=== PATIENT | male | born 1950 | race Caucasian/White ===

== ENCOUNTER 2018-12-30 10:06 | Inpatient (IN) | payer MEDICARE, OTHER ==
[~2018-12-30] VITALS: Ht 177.8 cm; Wt 79.8 kg
[~2018-12-30 10:06] MED LIST: AMIT50TA3 PO; FLUO10CA26 PO; OMEP40CA13 PO; SIMV20TA2 PO; SUCR1TAB PO
[2018-12-30] MEDS ORDERED: ONDANSETRON HCL/PF 4 MG/2 ML VIAL ONE (10:57)
[2018-12-30] MEDS ORDERED: MORPHINE SULFATE INJ 4 MG/ML DISP.SYRIN ONE (10:57)
[2018-12-30] MEDS ORDERED: IV NS 0.9% 1,000 ML BAG IV ONE (11:00)
[2018-12-30] MEDS ORDERED: MORPHINE SULFATE INJ 2 MG/ML DISP.SYRIN IV ONE (11:00)
[2018-12-30] MEDS ORDERED: ONDANSETRON HCL/PF 4 MG/2 ML VIAL IVP ONE (11:00)
[2018-12-30 11:03] LABS: BASOPHILS % (AUTO) 0.1 % (0.0-2.0); EOSINOPHILS % (AUTO) 0.6 % (0.0-6.0); HEMATOCRIT 40 % (39-51); HEMOGLOBIN 13.3 g/dL (13.5-17.5); LYMPHOCYTES # (AUTO) 0.1 /CMM (0.8-4.8); LYMPHOCYTES % (AUTO) 1.2 % (20.0-44.0); MEAN CORPUSCULAR HGB CONC 34 g/dl (31.0-36.0); MEAN CORPUSCULAR VOLUME 85 fL (80-96); MONOCYTES # (AUTO) 0.1 /CMM (0.1-1.30); MONOCYTES % (AUTO) 1.2 % (2.0-12.0); NEUTROPHILS % (AUTO) 96.9 % (43.0-81.0); PLATELET COUNT (AUTO) 57 /CMM (150-450); RED BLOOD CELL COUNT(AUTO) 4.67 MIL/uL (4.5-6.0); WHITE BLOOD COUNT (AUTO) 5.2 K/uL (4.3-11.0)
--- NOTE | 2018-12-30 11:07 | NUR ---
BIBFRIEND C/O RECTAL PAIN, CONSTIPATED, LAST BM 3 DAYS AGO, Hx IBS. ON ROOM AIR, BREATHING EVENLY AND UNLABORED. CONNECTED TO THE MONITOR AND PULSE OX. KEPT COMFORTABLE, WILL CONTINUE TO MONITOR ACCORDINGLY.
[2018-12-30 11:17] LABS: ALBUMIN 3.2 g/dL (3.4-5.0); CALCIUM, SERUM 8.7 mg/dL (8.5-10.1); CREATININE 5.1 mg/dL (0.6-1.3); POTASSIUM 3.6 mmol/L (3.5-5.1); TOTAL PROTEIN, SERUM 6.4 g/dL (6.4-8.2)
[2018-12-30 11:36] LABS: BAND % (MANUAL) 36 % (0.0-5.0); LYMPHOCYTES % (MANUAL) 1 % (16-48); METAMYELOCYTES % 2 % (0-0); MONOCYTES % (MANUAL) 6 % (0-11.0); NEUTROPHILS % (MANUAL) 55 (42-76)
--- NOTE | 2018-12-30 11:48 | NUR ---
CALLED FOR TELE BED
--- NOTE | 2018-12-30 11:50 | NUR ---
[facility]
[2018-12-30] MEDS ORDERED: IV NS 0.9% 500 ML BAG IV ONE (12:00)
--- NOTE | 2018-12-30 14:28 | NUR ---
TRANSFERED TO FLOOR. STABLE CONDITION. REPORT WAS GIVEN TO LILIA RN FOR DONNA.
[2018-12-30] MEDS ORDERED: MAGNESIUM HYDROXIDE 30 ML UDC PO PRN (14:30)
[2018-12-30] MEDS ORDERED: ONDANSETRON HCL/PF 4 MG/2 ML VIAL IVP PRN (14:30)
[2018-12-30] MEDS ORDERED: ACETAMINOPHEN 325 MG TABLET PO PRN (14:30)
[2018-12-30] MEDS ORDERED: ZOLPIDEM TARTRATE 5 MG TABLET PO PRN (14:30)
[2018-12-30] MEDS ORDERED: Z GUARD REMEDY 2 OZ OINT TP PRN (14:30)
[2018-12-30] MEDS: IV NS 0.9% 1,000 ML IV PRN (14:36)
[2018-12-30 16:00] VITALS: BP 81/55
[2018-12-30] MEDS: SUCRALFATE 1 G TABLET PO SCH (17:00)
--- NOTE | 2018-12-30 18:34 | NUR ---
RN CLOSING NOTES Patient remains on 2L nasal cannula no sob noted, remains a/o x3 and denies pain at this time. Patient has low bp, SOCIAL SERVICE ASSISTANT aware and wants fluids infused at this time. 18 ac with 75 ml per hour NS. all needs attended to, patient comfortable on his bed. Bed at the lowest setting, call light within reach, side rails up x2. Will give report to NOC RN for DONNA bedside.
--- NOTE | 2018-12-30 19:00 | NUR ---
MS RN NOTE RECEIVED PT IN STABLE CONDITION A/O X4, CURRENTLY IN SITTING BED. NO SIGNS OF SOB OR DISTRESS, PAIN TO BE MANAGED AT ORDERED, NO C/O OF N/V. IV IN L AC #[address] WITH IVF INFUSING. ALL CURRENT NEEDS ATTENDED TO. BED LOW, LOCKED, UPPER RAILS UP, AND CALL LIGHT WITHIN REACH. WILL CONT. TO MONITOR.
[2018-12-30] MEDS: HYDROCODONE/APAP 5/325MG 1 EACH TABLET PO PRN (19:32)
--- NOTE | 2018-12-30 19:32 | NUR ---
MS RN NOTE PRN NORCO 5/325 MG GIVEN FOR PAIN 10 LOCATED IN RECTAL AREA. WILL CONT. TO MONITOR.
[2018-12-30 20:00] VITALS: BP 94/46
[2018-12-30] MEDS: SIMVASTATIN 20 MG TABLET PO SCH (21:06)
[2018-12-30] MEDS ORDERED: AMITRIPTYLINE HCL 25 MG TABLET PO SCH (22:00)
[2018-12-31] VITALS (42 sets, daily range): BP systolic 53–145; BP diastolic 11–115
[2018-12-31] MEDS: IV NS 0.9% 1,000 ML IV PRN ×4 (02:31→14:27)
[2018-12-31] MEDS: HYDROCODONE/APAP 5/325MG 1 EACH TABLET PO PRN ×3 (02:37→08:51)
--- NOTE | 2018-12-31 03:35 | NUR ---
MS RN NOTE PT NOTED WITH BP OF 71/42, HR 104, O2 96%. BRINDA NOTIFIED WITH NEW ORDER FOR 500 ML IV BOLUS. WILL CARRY ORDER OUT.
[2018-12-31] MEDS ORDERED: IV NS 0.9% 500 ML IV ONE (04:00)
--- NOTE | 2018-12-31 04:20 | NUR ---
MS RN NOTE POST BOLUS VS: 90/51, HR 114, 97.7, 93%, 19. PT REMAINS ALERT ORIENTED. NO SIGNS OF SOB OR DISTRESS. STILL C/O RECTAL PAIN. NO OTHER SITES OF PAIN NOTED. PREVIOUS IVF RECONNECTED. WILL CONT. TO MONITOR.
--- NOTE | 2018-12-31 06:11 | NUR ---
MS RN NOTE PT REMAINS IN STABLE CONDITION A/O X4, CURRENTLY RESTING IN BED. NO SIGNS OF SOB OR DISTRESS, NO C/O OF N/V. IV IN L AC #[address] WITH IVF INFUSING. ALL CURRENT NEEDS ATTENDED TO. BED LOW, LOCKED, UPPER RAILS UP, AND CALL LIGHT WITHIN REACH. WILL CONT. TO MONITOR AND ENDORSE TO NEXT SHIFT FOR DONNA.
[2018-12-31 06:25] LABS: ALANINE AMINOTRANSFERASE 46 U/L (12-78); ALBUMIN 2.5 g/dL (3.4-5.0); ALKALINE PHOSPHATASE 109 U/L (46-116); ASPARTATE AMINOTRANSFERASE 31 U/L (15-37); BILIRUBIN,TOTAL 4.6 mg/dL (0.2-1.0); CALCIUM, SERUM 7.6 mg/dL (8.5-10.1); CARBON DIOXIDE 17 mmol/L (21-32); CHLORIDE 102 mmol/L (98-107); GLUCOSE 101 mg/dL (74-106); MAGNESIUM 1.7 mg/dL (1.8-2.4); PHOSPHORUS 6.2 mg/dL (2.5-4.9); POTASSIUM 4.3 mmol/L (3.5-5.1); SODIUM SERUM 136 mmol/L (136-145); TOTAL PROTEIN, SERUM 5.6 g/dL (6.4-8.2); UREA NITROGEN, BLOOD 89 mg/dL (7-18)
[2018-12-31 06:27] LABS: CHOLESTEROL 86 mg/dL (<200); CREATINE KINASE, TOTAL 83 U/L (39-308); HDL CHOLESTEROL < 10 mg/dL (40-60); LDL 18 mg/dL (0-99); TRIGLYCERIDES 427 mg/dL (30-150)
[2018-12-31 06:31] LABS: BASOPHILS % (AUTO) 0.1 % (0.0-2.0); EOSINOPHILS % (AUTO) 1.7 % (0.0-6.0); HEMATOCRIT 36 % (39-51); HEMOGLOBIN 12.2 g/dL (13.5-17.5); LYMPHOCYTES # (AUTO) 0.1 /CMM (0.8-4.8); LYMPHOCYTES % (AUTO) 1.5 % (20.0-44.0); MEAN CORPUSCULAR HGB CONC 34 g/dl (31.0-36.0); MEAN CORPUSCULAR VOLUME 84 fL (80-96); MONOCYTES # (AUTO) 0.1 /CMM (0.1-1.30); MONOCYTES % (AUTO) 1.5 % (2.0-12.0); NEUTROPHILS # (AUTO) 3.6 /CMM (1.8-8.9); NEUTROPHILS % (AUTO) 95.2 % (43.0-81.0); RED BLOOD CELL COUNT(AUTO) 4.28 MIL/uL (4.5-6.0); WHITE BLOOD COUNT (AUTO) 3.8 K/uL (4.3-11.0)
[2018-12-31 06:40] LABS: PLATELET COUNT (AUTO) 43 /CMM (150-450)
--- NOTE | 2018-12-31 06:40 | NUR ---
MS RN NOTE RECEIVED CALL FROM LAB FOR PLATELET 43, MESSAGED BRINDA CARUSO. AWAITING RESPONSE
--- NOTE | 2018-12-31 06:43 | NUR ---
MS RN NOTE BRINDA CARUSO, NO NEW ORDERS IN REGARDS TO PLATELET. WILL ENDORSE TO NEXT SHIFT FOR DONNA.
[2018-12-31 07:29] LABS: BAND % (MANUAL) 23 % (0.0-5.0); LYMPHOCYTES % (MANUAL) 2 % (16-48); MONOCYTES % (MANUAL) 6 % (0-11.0); NEUTROPHILS % (MANUAL) 69 (42-76)
--- NOTE | 2018-12-31 07:31 | NUR ---
M/S RN NOTES PATIENT RECEIVED RESTING IN BED A/O x4. NO SIGNS OF DISTRESS AND NO CURRENT COMPLAINS OF PLAIN. IV LOCATED ON LAC #18. SAFETY PRECAUTIONS INITIATED WITH BED IN LOWEST POSITION, LOCKED, BED RAILS UP x2, AND CALL LIGHT WITHIN REACH. WILL CONTINUE TO MONITOR.
[2018-12-31] MEDS: PANTOPRAZOLE 40 MG TABLET.DR PO SCH (08:23)
[2018-12-31] MEDS: SUCRALFATE 1 G TABLET PO SCH ×3 (08:23→17:00)
--- NOTE | 2018-12-31 08:49 | NUR ---
M/S RN NOTES PATIENT COMPLAINT OF RECTAL PAIN 09/05 WITH MOANING AND FACIAL GRIMACES. NORCO WAS ADMINISTERED AT 0851.
[2018-12-31] MEDS ORDERED: Magnesium 1GM/D5W 100ML PREMIX 100 ML IV SCH (09:30)
--- NOTE | 2018-12-31 10:24 | NUR ---
M/S RN NOTES PATIENT COMPLAINED OF ABDOMINAL DISCOMFORT AND UNABLE TO URINATE. BLADDER SCAN WAS DONE AND SHOWED 390 ML OF URINE RESIDUAL. EMMA TORRES WAS NOTIFIED AND ORDERED TO INSERT LARIOS CATHETER AND URINE SPECIMEN COLLECTION. AFTER INSERTION OF CATHETER 250 OUTPUT OF URINE REMOVED.
--- NOTE | 2018-12-31 10:26 | NUR ---
M/S RN NOTES RECEIVED CALL FROM LAB THAT PATIENTS LACTIC ACID WAS 9.2 .CAREER TECHNICAL EDUCATION TEACHER MELISSA ON UNIT NOTIFIED AND MADE ORDERS. WILL CONTINUE TO MONITOR.
--- NOTE | 2018-12-31 11:18 | NUR ---
M/S RN NOTES INSERTED LARIOS CATHETER ORDERED, FR #[id number] WITH EASE, NO HEMATURIA OR BLEEDING NOTED. 250 ML OF DARK YELLOW COLORED URINE OUTPUT.
[2018-12-31] MEDS ORDERED: SODIUM BICARBONATE SYR 50 MEQ/50 ML DISP.SYRIN ONE (11:57)
[2018-12-31] MEDS ORDERED: SODIUM BICARBONATE SYR 50 MEQ/50 ML DISP.SYRIN IV ONE ×2 (12:00→15:30)
[2018-12-31] MEDS ORDERED: NOREPINEPHRINE 8 MG in IV D5W 500 ML IV PRN (12:00)
[2018-12-31] MEDS ORDERED: NS 0.9% IV PRN (12:00)
[2018-12-31 12:06] LABS: ABG OXYGEN SATURATION 93.1 % (92.0-98.5); ABG PCO2 20.9 mmHg (35.0-45.0); ABG PH 7.172 (7.350-7.450); ABG PO2 83.7 mmHg (75.0-100.0); AaDO2 91.3 mmHg; COHb 0.9 % (0.5-1.5); MetHb 0.6 % (0.0-1.5); O2Hb 91.7 % (94.0-97.0); SITE, ABG Right Radial; VENT MODE, BG NASAL CANNULA
[2018-12-31] MEDS ORDERED: FEE PK DOSING 1 MIN EA MC ONE (12:15)
--- NOTE | 2018-12-31 12:15 | NUR ---
ICU/MEDICAL DEVICE ASSEMBLER TO ICU - ROOM 256 PT ARRIVED VIA BED, ACCOMPANIED BY MEDSUR NURSE SUSHILA. PT A/O X 3, COMPLAINT OF ABDOMINAL PAIN (SEVERE), DIAPHORETIC AND ANXIOUS. PLACED ON NON-REBREATHER MASK, LABORED BREATHING. UNCONTROLLED A-FIB, HR 180. WITH ON GOING BOLUS IV INFUSION 1 OF 2.1L OF NS. LARIOS CATHETER INTACT WITH MINIMUM CLOUDY YELLOW URINE OUTPUT. EMMA TORRES AND DR. HUMPHREYS ATTENDING PT. REPORT GIVEN AT BEDSIDE. ON GOING MONITORING.
[2018-12-31 12:17] LABS: CREATININE, URINE 339.6 MG/DL (30.0-125.0)
[2018-12-31] MEDS ORDERED: Sodium Bicarbonate 150 MEQ in IV NS 0.9% 1,000 ML IV PRN ×2 (12:30→20:30)
[2018-12-31] MEDS ORDERED: VANCOMYCIN 0.75 GM in IV D5W 250 ML IV SCH ×2 (12:30→13:00)
[2018-12-31] MEDS ORDERED: FENTANYL PF 100MCG/2ML AMPUL IV ONE (12:30)
--- NOTE | 2018-12-31 12:31 | NUR ---
RN NOTES PATIENT NOTED DIAPHORETIC AND VERBALIZED THAT HE DOESN'T FEEL OK. PT REMAINS ALERT AND ORIENTED X3. PROCALCITONIN 54.18. JAVA SCALA DEVELOPER MELISSA ON UNIT AND MADE AWARE. JAVA SCALA DEVELOPER MELISSA WITH ORDER TO PLACED PT ON NON-REBREATHER MASK, DO STAT EKG, ABG, CT OF ABD/CHEST/PELVIS W/O CONTRAST THEN TRANSFER PT TO ICU. V/S CHECK: BP UN-ABLE TO OBTAINED, HR 160-200, R 21, T 97.9F, SP02 79% BS 98. PT BROUGHT TO CT ROOM VIA ACLS PROTOCOL THEN TRANSFERRED TO ICU RM 256 AFTER. NA BICARB ADMINISTERED IN ICU. LATEST BP WAS 94/71MMHG, HR 180-200BPM, R 20 AND SP02 98%. BEDSIDE REPORT GIVEN TO ABIMAEL MEDINA.
[2018-12-31] MEDS ORDERED: FENTANYL PF 100MCG/2ML AMPUL ONE (12:37)
[2018-12-31 12:49] LABS: APPEARANCE,URINE CLOUDY (CLEAR); BILIRUBIN,URINE MODERATE (NEGATIVE); BLOOD, URINE NEGATIVE Ery/uL (NEGATIVE); COLOR,URINE AMBER (YELLOW); KETONES,URINE TRACE (NEGATIVE); LEUKOCYTE ESTERASE ,URINE TRACE (NEGATIVE); NITRITE, URINE POSITIVE (NEGATIVE); PROTEIN,URINE 30 mg/dl (NEGATIVE); UGLUCOSE NEGATIVE (NEGATIVE); UROBILINOGEN,URINE 0.2 EU/dL (0.2)
[2018-12-31 12:57] LABS: BACTERIA,URINE Moderate /HPF (None Seen); RBC,URINE 0-2 /HPF (0-2); SQUAMOUS EPITHELIAL CELL,UR Few /HPF (None Seen); WBC,URINE 21-50 /HPF (0-3)
[2018-12-31 12:58] LABS: CALCIUM OXALATE CRYSTALS,UR Rare /HPF (None Seen); MUCUS,URINE Few /LPF (None Seen)
[2018-12-31 12:59] LABS: URINE AMORPHOUS URATE Few /HPF (None Seen)
[2018-12-31] MEDS ORDERED: PIPERACILLIN /TAZOBACTAM 2.25 G in IV D5W 50 ML IV SCH (13:00)
[2018-12-31 13:08] LABS: EOSINOPHIL,URINE Rare
[2018-12-31] MEDS ORDERED: Sodium Bicarbonate 150 MEQ in IV NS 0.9% 1,000 ML IV ONE (13:37)
[2018-12-31] MEDS: NOREPINEPHRINE 8 MG in IV D5W 500 ML IV PRN ×3 (14:00→23:19)
[2018-12-31] MEDS ORDERED: HYDROMORPHONE 1 MG/1 ML DISP.SYRIN IV PRN (14:00)
[2018-12-31 14:22] LABS: ABG BASE EXCESS -19.8 mmol/L; ABG OXYGEN SATURATION 96.2 % (92.0-98.5); ABG PH 7.143 (7.350-7.450); ABG PO2 113.4 mmHg (75.0-100.0); AaDO2 433.9 mmHg; COHb 0.1 % (0.5-1.5); MetHb 0.7 % (0.0-1.5); O2Hb 95.4 % (94.0-97.0); SITE, ABG Left Brachial; VENT MODE, BG Non Rebreather 80%
--- NOTE | 2018-12-31 15:44 | NUR ---
ICU/RN INTUBATION PT WITH DR. HUMPHREYS AT BEDSIDE INTUBATING PT WITH (3) RESPIRATORY THERAPIST AND CHARGE NURSE. MONITORING.
--- NOTE | 2018-12-31 15:45 | NUR ---
RT NOTE Pt intubated by VIRA Rosas w 7.5 ETT placed @ 24 cm @ lip line. Equal and bilateral breath sounds noted. Positive color change observed. Pt placed on [facility] vent on noted settings. Vent is plugged into red outlet w ambubag @ hob. Alarms are set and audible. Will continue to monitor. Addendum: 12/31/18 at 1636 by SALMA ROQUE RT Amended: Links added.
[2018-12-31 15:59] LABS: ABG BASE EXCESS -16.6 mmol/L; ABG OXYGEN SATURATION 97.4 % (92.0-98.5); ABG PCO2 27.4 mmHg (35.0-45.0); ABG PH 7.186 (7.350-7.450); ABG PO2 135.4 mmHg (75.0-100.0); AaDO2 406.2 mmHg; COHb 0.3 % (0.5-1.5); MetHb 0.7 % (0.0-1.5); O2Hb 96.4 % (94.0-97.0); SITE, ABG A-Line; VENT MODE, BG 100%
--- NOTE | 2018-12-31 16:11 | NUR ---
ICU/RN CARDIOVERSION DR. HUMPHREYS AT BEDSIDE PERFORMING CARDIOVERSION (TWICE) WITH CHARGE NURSE ASSISTING, HR DECREASED TO 150, CONVERTED TO SINUS TACHY. MONITORING.
[2018-12-31] MEDS: IV NS 0.9% 2,000 ML IV PRN ×2 (16:30→17:12)
[2018-12-31] MEDS ORDERED: PROPOFOL 100 ML IV PRN (16:30)
--- NOTE | 2018-12-31 17:40 | NUR ---
RT Pt intubated by VIRA Rosas w 7.5 Ett @ 23cm and on [facility] vent w charted settings. Vent is plugged into red outlet w bmv @ hob. Alarms are set and audible. Pt is tachycardic. Will pass on report to night clerk RT.
[2018-12-31] MEDS ORDERED: KEY,NONCONTROL,TO KEEP IN PYXI 1 EA MC ONE (17:41)
[2018-12-31 18:15] LABS: ABG BASE EXCESS -17.4 mmol/L; ABG OXYGEN SATURATION 98.8 % (92.0-98.5); ABG PCO2 31.9 mmHg (35.0-45.0); ABG PH 7.134 (7.350-7.450); ABG PO2 281.8 mmHg (75.0-100.0); AaDO2 399.3 mmHg; MetHb 0.9 % (0.0-1.5); O2Hb 97.9 % (94.0-97.0); PEEP,BG 5 cm H2O; SITE, ABG A-Line; VT, ABG 500 mL
--- NOTE | 2018-12-31 18:30 | NUR ---
ICU/GIVING OFFICER DR. GABRIELLA QUIROZ PERFORMED PERIANAL INCISIONAL DECOMPRESSION. CULTURE OBTAINED AND SENT TO LAB.
[2018-12-31] MEDS: MEROPENEM 500 MG in IV NS 0.9% 50 ML IV SCH (18:57)
[2018-12-31] MEDS ORDERED: IV NS 0.9% 2,000 ML IV ONE (19:00)
[2018-12-31] MEDS ORDERED: FENTANYL CITRATE IV 1,250 MCG in IV NS 0.9% 225 ML IV PRN (19:00)
[2018-12-31] MEDS ORDERED: IV NS 0.9% 1,000 ML BAG IV ONE (19:00)
[2018-12-31] MEDS ORDERED: PHENYLEPHRINE 20 MG in IV D5W 250 ML IV PRN (19:00)
--- NOTE | 2018-12-31 20:00 | NUR ---
ICU/RN AM SHIFT END NOTES ALL NEEDS MET, BP NOT SUSTAINING BUT HAD INCREASED DOSE OF LEVO, WILL CHANGE MEDICATION TO ZORAIDA, HR IN THE 140s. WITH ON GOING IV INFUSION NS, SODIUM BICARB, PROPOFOL. PT RECEIVED ABOUT 6L NS WITH SCANT URINE OUTPUT. REPORT GIVEN TO PM NURSE, ENDORSED TO CONTINUE CARE. CL WITHIN REACHED AND SAFETY MAINTAINED.
--- NOTE | 2018-12-31 20:10 | NUR ---
RN NOTES RECEIVED PATIENT ORALLY INTUBATED WITH ETT 7.5 AND 24 CM @ LIP CONNECTED TO VENT SETTING AC 28 TV 550 FIO2 100% PEEP 5. SEDATED. ABLE TO FOLLOW SIMPLE COMMAND, NON VERBAL. SATURATION 92% SINUS TACH ON TELE MONITOR HR 138 S/P CARDIOVERT BY DR. HUMPHREYS DUE TO A-FIB HR 200'S AND CONVERTED TO ST AFTER 2X CONVERSION. WITH A-LINE READS SBP 60'S/35 BUT NIBP IS 102/58. WAITING FOR NEOSYNEPHRINE TO COME, PHARMACY ALREADY FOLLOWED UP. WAITING WITH NGT ON RIGHT NARES ON LIS. IV SITE ON RAC G 18 WITH LEVOPHED @ 35 MCG/MIN. AND ROGELIO PICC LINE WITH PROPOFOL @ 10 MCG/KG/MIN,, NA BICARB @ 150 ML/HR AND NS @ 125 ML/HR . KEPT PT FLAT ON BED. WILL CLOSELY MONITOR.
[2018-12-31 20:18] LABS: D-DIMER 26.14 mg/L(FEU (0.17-0.50)
[2018-12-31] MEDS ORDERED: DEXTROSE 50%-WATER 50 ML DISP.SYRIN ONE (20:25)
[2018-12-31] MEDS ORDERED: DEXTROSE 50%-WATER 50 ML DISP.SYRIN IVP ONE (20:30)
[2018-12-31] MEDS ORDERED: INSULIN REGULAR, HUMAN 100 UNIT/ML 3 ML VIAL SQ PRN (20:30)
--- NOTE | 2018-12-31 20:30 | NUR ---
RN NOTES SEEN AND EXAMINED BY MELISSA PATHOLOGIST ASSISTANT ON THE FLOOR WITH NEW ORDER TO CHECKED BS STAT , BS=37 MG/DL, D50 GIVEN VERBALIZED BY MELISSA PATHOLOGIST ASSISTANT. WILL RECHECKED AFTER 15 MINUTES. A- LINES READING SBP ON 40-50S BUT NIBP WAS ON 90'S -110'S, CHARGE NURSE CHECKED PATIENT SBP VIA DOPPLER SYSTOLIC BP=85 MMHG BUT PER MELISSA PATHOLOGIST ASSISTANT TO FOLLOW A- LINE READING NOTED.
--- NOTE | 2018-12-31 20:41 | NUR ---
RECEIVED PT INTUBATED 7.5 ETT SECURED AT 24CM AT THE LIP. TOLERATING VENT SETTINGS. SX'D FOR SML AMT OF THIN WHITE SECRETIONS. VENT ALARMS SET AND AUDIBLE. AMBU BAG AT BEDSIDE. CONTINUE [facility] VENT SUPPORT. Addendum: 12/31/18 at 204 by YUE SANTOS RT Amended: Links added.
[2018-12-31 20:51] LABS: EOSINOPHILS % (AUTO) 3.1 % (0.0-6.0); HEMATOCRIT 33 % (39-51); LYMPHOCYTES # (AUTO) 0.1 /CMM (0.8-4.8); LYMPHOCYTES % (AUTO) 1.7 % (20.0-44.0); MEAN CORPUSCULAR HGB CONC 33 g/dl (31.0-36.0); MEAN CORPUSCULAR VOLUME 85 fL (80-96); MONOCYTES % (AUTO) 1.4 % (2.0-12.0); NEUTROPHILS # (AUTO) 2.8 /CMM (1.8-8.9); NEUTROPHILS % (AUTO) 93.8 % (43.0-81.0); RED BLOOD CELL COUNT(AUTO) 3.87 MIL/uL (4.5-6.0)
[2018-12-31 21:02] LABS: PLATELET COUNT (AUTO) 33 /CMM (150-450)
[2018-12-31 21:13] LABS: CREATININE 6.4 mg/dL (0.6-1.3); POTASSIUM 3.8 mmol/L (3.5-5.1)
--- NOTE | 2018-12-31 21:13 | NUR ---
ABG DONE. NOTIFIED GRAPHIC ILLUSTRATOR RENEE AND PIA VARGHESE WITH THE RESULT.
[2018-12-31 21:14] LABS: ABG BASE EXCESS -18.2 mmol/L; ABG OXYGEN SATURATION 98.3 % (92.0-98.5); ABG PCO2 28.8 mmHg (35.0-45.0); ABG PH 7.135 (7.350-7.450); ABG PO2 183.4 mmHg (75.0-100.0); AaDO2 500.8 mmHg; COHb 0.2 % (0.5-1.5); MetHb 0.9 % (0.0-1.5); O2Hb 97.2 % (94.0-97.0); SITE, ABG A-Line; VENT MODE, BG AC 28 550 100% +5
[2018-12-31 21:16] LABS: CALCIUM, SERUM 5.7 mg/dL (8.5-10.1)
[2018-12-31 21:19] LABS: BILIRUBIN,TOTAL 2.9 mg/dL (0.2-1.0); TOTAL PROTEIN, SERUM 3.7 g/dL (6.4-8.2)
[2018-12-31 21:22] LABS: ALBUMIN 1.4 g/dL (3.4-5.0)
[2018-12-31] MEDS: DEXTROSE 50%-WATER 50 ML DISP.SYRIN IV PRN (21:42)
[2018-12-31] MEDS: Sodium Bicarbonate 150 MEQ in IV D5/ 0.9% NACL 1,000 ML IV PRN (21:42)
[2018-12-31] MEDS: PHENYLEPHRINE 80 MG in IV D5W 250 ML IV PRN (21:50)
[2018-12-31 22:08] LABS: BAND % (MANUAL) 40 % (0.0-5.0); EOSINOPHILS % (MANUAL) 2 % (0-4); LYMPHOCYTES % (MANUAL) 3 % (16-48); METAMYELOCYTES % 5 % (0-0); MONOCYTES % (MANUAL) 2 % (0-11.0)
[2018-12-31 22:10] LABS: NEUTROPHILS % (MANUAL) 48 (42-76)
[2018-12-31] MEDS ORDERED: Calcium Gluconate 1GM/10ML 4.65 MEQ in IV NS 0.9% 50 ML IV ONE (22:30)
[2018-12-31] MEDS ORDERED: NOREPINEPHRINE 4 MG/4 ML AMPUL IV ONE (22:38)
[2018-12-31] MEDS: SIMVASTATIN 20 MG TABLET PO SCH (22:49)
[2018-12-31] MEDS ORDERED: ALBUMIN 25% 100 ML IV ONE (22:59)
[2018-12-31] MEDS ORDERED: ACETAMINOPHEN 650 MG/20.3 ML UDC NG PRN (23:00)
--- NOTE | 2018-12-31 23:00 | NUR ---
RN NOTES FENTANYL DRIP AND NEOSYNEPHRINE DRIP STARTED AND WILL TITRATED ORDERED. COOLING MEASURES PROVIDED, COOLING BLANKET PLACED FOR TEMPERATURE OF 102.5,
[2018-12-31] MEDS ORDERED: Calcium Gluconate 0.465 MEQ/ML VIAL IV ONE (23:01)
[2018-12-31] MEDS: ALBUMIN 25% 25 GM in PREMIX 1 EA IV SCH (23:04)
--- NOTE | 2018-12-31 23:20 | NUR ---
RN NOTES PATIENT IS TACHYPNEIC AND DIAPHORETIC, INITIATED FENTANYL DRIP @ 1 MCG/KG/HR , BP STILL IN A LOW SIDE FROM A- LINE 61/28 MMHG NIBP 88/50 MMHG. ALL PRESSORS ONGOING AND TITRATED PROTOCOL ORDER
[2018-12-31] MEDS ORDERED: IV NS 0.9% 250 ML IV PRN (23:30)
[2018-12-31] MEDS: BLOOD SUGAR DIAGNOSTIC 1 EACH STRIP IN SCH (23:51)
[2019-01-01] VITALS (52 sets, daily range): BP systolic 49–129; BP diastolic 28–102
[2019-01-01] MEDS ORDERED: BLOOD SUGAR DIAGNOSTIC 1 EACH STRIP IN SCH
--- NOTE | 2019-01-01 00:30 | NUR ---
RN NOTES INFORMED BRINDA DNP TOLL TRANSMISSION WORKER THAT PATIENT IS ON AGONAL BREATHING AND FOLLOW UP REGARDING ABG RESULT, AND THAT NURSES ARE STILL WAITING FOR DR. POLLACK TO ANSWERED BACK. WAITING FOR THE ORDERS.
[2019-01-01 00:38] LABS: ABG OXYGEN SATURATION 98.4 % (92.0-98.5); ABG PCO2 27.2 mmHg (35.0-45.0); ABG PH 7.042 (7.350-7.450); ABG PO2 189.9 mmHg (75.0-100.0); AaDO2 495.9 mmHg; COHb 0.3 % (0.5-1.5); MetHb 0.6 % (0.0-1.5); O2Hb 97.5 % (94.0-97.0); PEEP,BG 5 cm H2O; SITE, ABG A-Line
--- NOTE | 2019-01-01 00:38 | NUR ---
ABG DONE. NOTIFIED NOHELIA DIRECTOR AMBULATORY WITH THE RESULT.
[2019-01-01] MEDS ORDERED: SODIUM BICARBONATE SYR 50 MEQ/50 ML DISP.SYRIN IV STA (00:42)
[2019-01-01 00:44] LABS: BASOPHILS % (AUTO) 0.1 % (0.0-2.0); EOSINOPHILS % (AUTO) 3.7 % (0.0-6.0); HEMATOCRIT 36 % (39-51); HEMOGLOBIN 11.8 g/dL (13.5-17.5); LYMPHOCYTES # (AUTO) 0.2 /CMM (0.8-4.8); LYMPHOCYTES % (AUTO) 3.2 % (20.0-44.0); MEAN CORPUSCULAR HGB CONC 33 g/dl (31.0-36.0); MEAN CORPUSCULAR VOLUME 87 fL (80-96); MONOCYTES # (AUTO) 6.1 /CMM (0.1-1.30); MONOCYTES % (AUTO) 91.9 % (2.0-12.0); NEUTROPHILS # (AUTO) 0.1 /CMM (1.8-8.9); NEUTROPHILS % (AUTO) 1.1 % (43.0-81.0); RED BLOOD CELL COUNT(AUTO) 4.17 MIL/uL (4.5-6.0); WHITE BLOOD COUNT (AUTO) 6.6 K/uL (4.3-11.0)
--- NOTE | 2019-01-01 00:45 | NUR ---
RN NOTES INFORMED [employer] REGARDING ABG RESULT PH 7.042, PCO2 27.2, [id number], HCO33 7.2. WITH NEW ORDER TO GIVE 1 AMP OF BICARB NOTED AND ADMINISTERED
[2019-01-01] MEDS ORDERED: ALBUMIN 25% 100 ML IV ONE (00:49)
[2019-01-01] MEDS: ALBUMIN 25% 25 GM in PREMIX 1 EA IV SCH ×3 (00:52→04:35)
[2019-01-01 00:53] LABS: BILIRUBIN,TOTAL 3.3 mg/dL (0.2-1.0); CALCIUM, SERUM 6.2 mg/dL (8.5-10.1); CREATININE 6.7 mg/dL (0.6-1.3); POTASSIUM 4.6 mmol/L (3.5-5.1); TOTAL PROTEIN, SERUM 4.3 g/dL (6.4-8.2)
[2019-01-01 00:59] LABS: PLATELET COUNT (AUTO) 34 /CMM (150-450)
[2019-01-01] MEDS: BLOOD SUGAR DIAGNOSTIC 1 EACH STRIP IN SCH ×6 (01:04→11:56)
[2019-01-01] MEDS ORDERED: VASOPRESSIN INJ 20 UNIT/ML VIAL ONE (01:30)
[2019-01-01] MEDS ORDERED: VASOPRESSIN INJ 50 UNIT in IV D5W 497.5 ML IV PRN (01:30)
[2019-01-01] MEDS ORDERED: PHENYLEPHRINE 10 MG/ML VIAL ONE ×2 (01:56→06:34)
[2019-01-01] MEDS ORDERED: NOREPINEPHRINE 4 MG/4 ML AMPUL IV ONE ×2 (01:56→04:32)
[2019-01-01] MEDS: NOREPINEPHRINE 8 MG in IV D5W 500 ML IV PRN ×4 (02:06→12:28)
[2019-01-01] MEDS: MEROPENEM 500 MG in IV NS 0.9% 50 ML IV SCH (02:09)
--- NOTE | 2019-01-01 02:30 | NUR ---
RN NOTES CALLED KATIE GUERRERO RESPONSIBLE DEMOCRAT FROM THE CHART TO UPDATE REGARDING THE PATIENT BEING UNSTABLE AND TO VERIFY WHAT'S HIS RELATIONSHIP TO THE PATIENT. LEAVE A SHORT MESSAGE TO VOICEMAIL TO CALL BACK IN THE HOSPITAL FOR MORE INFORMATION.
[2019-01-01] MEDS ORDERED: ALBUMIN 25% 200 ML IV ONE (02:37)
[2019-01-01] MEDS: DEXTROSE 50%-WATER 50 ML DISP.SYRIN IV PRN ×5 (02:48→12:25)
--- NOTE | 2019-01-01 03:20 | NUR ---
RN NOTES BRINDA CONSTANTINO ON THE FLOOR,EXAMINED THE PATIENT UPDATED REGARDING PATIENT STATUS, MADE AWARE THAT THERE'S A [employer] IN THE CHART NAME KATIE GUERRERO HAVEN'T BEEN CALLED BACK SINCE WE LEFT A MESSAGE.
--- NOTE | 2019-01-01 03:28 | NUR ---
RN NOTES INFORMED BRINDA , DNP THAT THE A-LINE IS VERY OFF/ RE-POSITIONAL, CHECKED ON DOPPLER AND PATIENT NIBP IS MORE CLOSER THAN A-LINE. PER BRINDA TO FOLLOW NIBP.
[2019-01-01] MEDS: IV NS 0.9% 1,000 ML IV PRN (03:46)
--- NOTE | 2019-01-01 04:00 | NUR ---
RN NOTES PATIENT REMAINED HEMODYNAMICALLY UNSTABLE, TEMPERATURE AT THIS TIME IS 99.7 DEGREE FHARENHEIGHT. CONTINUE ON PRESSORS LEVOPHED, NEOSYNEPHRINE AND VASOPRESSIN TITRATED PROTOCOL ORDER. IVF NS , [id number] D5NS AND ALBUMIN IV ADMINISTERED ORDERED. CONTINUE TO CLOSELY MONITOR, PATIENT IS MORE LETHARGIC.
[2019-01-01 04:47] LABS: BASOPHILS % (AUTO) 0.2 % (0.0-2.0); EOSINOPHILS % (AUTO) 3.4 % (0.0-6.0); HEMATOCRIT 32 % (39-51); HEMOGLOBIN 10.6 g/dL (13.5-17.5); LYMPHOCYTES # (AUTO) 0.3 /CMM (0.8-4.8); LYMPHOCYTES % (AUTO) 2.5 % (20.0-44.0); MEAN CORPUSCULAR HGB CONC 33 g/dl (31.0-36.0); MEAN CORPUSCULAR VOLUME 89 fL (80-96); MONOCYTES # (AUTO) 0.1 /CMM (0.1-1.30); MONOCYTES % (AUTO) 0.6 % (2.0-12.0); NEUTROPHILS # (AUTO) 9.7 /CMM (1.8-8.9); NEUTROPHILS % (AUTO) 93.3 % (43.0-81.0); RED BLOOD CELL COUNT(AUTO) 3.65 MIL/uL (4.5-6.0); WHITE BLOOD COUNT (AUTO) 10.3 K/uL (4.3-11.0)
[2019-01-01 05:02] LABS: CALCIUM, SERUM 6.4 mg/dL (8.5-10.1); CREATININE 6.9 mg/dL (0.6-1.3); MAGNESIUM 2.6 mg/dL (1.8-2.4); POTASSIUM 4.9 mmol/L (3.5-5.1)
[2019-01-01] MEDS: Sodium Bicarbonate 150 MEQ in IV D5/ 0.9% NACL 1,000 ML IV PRN (05:10)
[2019-01-01 05:18] LABS: PHOSPHORUS 10.1 mg/dL (2.5-4.9)
[2019-01-01 05:37] LABS: PLATELET COUNT (AUTO) 31 /CMM (150-450)
[2019-01-01 05:45] LABS: BAND % (MANUAL) 45 % (0.0-5.0); BASOPHILS % (MANUAL) 0 % (0.0-2.0); EOSINOPHILS % (MANUAL) 9 % (0-4); LYMPHOCYTES % (MANUAL) 8 % (16-48); METAMYELOCYTES % 2 % (0-0); MONOCYTES % (MANUAL) 3 % (0-11.0); NEUTROPHILS % (MANUAL) 33 (42-76)
[2019-01-01 05:52] LABS: FERRITIN 4970 ng/mL (8-388); THYROID STIMULATING HORMONE 0.674 uIU/mL (0.358-3.74)
[2019-01-01 06:02] LABS: IRON, SERUM 69 ug/dl (50-175); TOTAL IRON BINDING CAPACITY 65 ug/dl (250-450)
[2019-01-01] MEDS: PHENYLEPHRINE 80 MG in IV D5W 250 ML IV PRN ×2 (07:00→10:53)
[2019-01-01] MEDS: PANTOPRAZOLE 40 MG TABLET.DR PO SCH (07:30)
--- NOTE | 2019-01-01 07:30 | NUR ---
RN NOTES RECEIVED PATIENT ORALLY INTUBATED WITH ETT 7.5 AND 24 CM @ LIP CONNECTED TO VENT SETTING AC 28 TV 550 FIO2 100% PEEP 5. SEDATED. OBTUNDED. POORLY SATURATION ON THE MONITOR. SINUS TACH ON TELE MONITOR HR 136. BLOOD PRESSURE ON THE LOW SIDE AND A-LINE NOT ACCURATELY READING ATTENDING IS INFORMED. PATIENT NOTED WITH GENERALIZED EDEMA. NGT ON RIGHT NARES ATTACHED TO INTERMITTENT LOW SUCTIONING WITH COFFEE GROUND DRAINAGE. IV SITE ON RAC G 18 WITH A. LEVOPHED @ 34 MCG/MIN AND ROGELIO PICC LINE WITH NA BICARB @ 150 ML/HR, NS @ 125 ML/HR, PRESSIN AT 0.04 UNIT/MIN, ZORAIDA AT 34MCG/MIN AND FENTANYL AT 70 MCG/MIN. WILL TITRATE DRIPS ACCORDIGNLYWILL KEPT PT FLAT ON BED. WILL CLOSELY MONITOR.
--- NOTE | 2019-01-01 07:35 | NUR ---
RT PATIENT REC'D ORALLY INTUBATED ON VENT IN ICU. PATIENT NON VERBAL, NON RESPONSIVE TO COMMANDS, IN CRITICAL CONDITION. VENT SETTINGS AND ALARMS CHECKED + AUDIBLE. CUFF PRESSURE CHECKED LOGGING SPECIALIST. PATIENT SUCTIONED WITH SMALL AMT OF PALE SEMITHICK SECRETIONS. AMBU BAG AT HOB. CONT CURRENT PLAN OF CARE. Addendum: 01/01/19 at 1638 by MARY CARMEN MCFARLANE RT Amended: Links added.
--- NOTE | 2019-01-01 07:47 | NUR ---
RN NOTES PATIENT REMAINED HEMODYNAMICALLY UNSTABLE AT THIS TIME. CONTINUE WITH ETT AND VENT INTHE SAME SETTING. NON VERBAL CONTINUE WITH PRESSORS LEVOPHED @ 34 MCG/MIN, NEOSYNEPHRINE @ 300, VASOPRESSIN @ 0.04, SODIUM BICARB @ 150 ML.HR , NS @ 125 ML/HR FENTANYL ! 1 MCG/KG/HR AND ATB. NIBP FOLLOWS. WITH POOR PERFUSION , UNABLE TO READ SATURATION REMAINED SINUS TACH BETWEEN 130'S -140'S . AFEBRILE AT THIS TIME. LATEST TEMP 99.2 KATIE GUERRERO BROTHER CALLED BACK AND UPDATED REGARDING THE PATIENT STATUS BROTHER WANTED TO BE CALLED BY MD AND UPDATE REGARDING THE PROGNOSIS OF THE PATIENT AND THE PLAN OF CARE WILL ENDORSED TO AM SHIFT TO RELAY TO MD. KEPT PT CLEAN AND DRY. AND CLOSELY MONITOR.
[2019-01-01] MEDS ORDERED: Sodium Chloride 154 MEQ in IV 10% DEXTROSE 1,000 ML IV PRN ×2 (08:00→09:00)
[2019-01-01 08:06] LABS: COMPLEMENT C3, SERUM 99 mg/dL (82-167); COMPLEMENT C4, SERUM 45 mg/dL (14-44)
[2019-01-01] MEDS ORDERED: ROCURONIUM BROMIDE 50 MG/5 ML IV ONE (08:18)
[2019-01-01] MEDS ORDERED: FEE EMEERGENCY 1 MIN EA MC ONE (08:18)
[2019-01-01] MEDS ORDERED: ETOMIDATE 2 MG/ML VIAL IV ONE (08:18)
[2019-01-01 08:26] LABS: ABG BASE EXCESS -28.5 mmol/L; ABG OXYGEN SATURATION 81.2 % (92.0-98.5); ABG PCO2 29.3 mmHg (35.0-45.0); ABG PH 6.807 (7.350-7.450); ABG PO2 65.3 mmHg (75.0-100.0); COHb 0.5 % (0.5-1.5); SITE, ABG Other
--- NOTE | 2019-01-01 08:30 | NUR ---
RN NOTES CHECK BLOOD SUGAR ODERED, BLOOD SUGAR READS LOW ON THE MONITOR. D50 ADMINISTER. WILL RECHECK BLOOD SUGAR IN A WHILE
[2019-01-01] MEDS: SUCRALFATE 1 G TABLET PO SCH (08:59)
[2019-01-01] MEDS ORDERED: PIPERACILLIN /TAZOBACTAM 2.25 G in IV D5W 50 ML IV SCH (09:00)
[2019-01-01] MEDS ORDERED: SODIUM BICARBONATE SYR 50 MEQ/50 ML DISP.SYRIN IV ONE ×2 (09:00→14:33)
[2019-01-01 09:07] LABS: HIV SCRN 4G wRFX Non Reactive (Non Reactive)
--- NOTE | 2019-01-01 09:10 | NUR ---
RN NOTES BLOOD SUGAR RECHECK READS STILL LOW, CANT ADMINISTER D50 YET SINCE IT WAS JUST ADMINISTERED. DR LYNN, WHO IS TA THE UNIT MADE AWARE. PER THE LATER HE WILL CHECK ON IT. INFORMED HIM THAT I HAVE OBTAINED AN ORDER FROM EMILY TORRES NP TO RUN D10 AT 125 CC/ HR. PER THE LATER HE WILL CHECKED ON IT. AT THE UNIT TOO, SPOKE TO HIM ABOUT RUNNING FLUID AT THIS TIME. PER THE LATTER, WILL CHECK AND PUT ORDER HIMSELF. DR. OBREGON FINALLY OBTAINED D10 AT 50 CC/HR. BUT PHARMACIST (XOCHILT) HAS TO CONFIRMED WITH THE MD ABOUT SODIUM CAROBONATE 150MEQ ON D5NS AND THE NEWLY ORDERED D10.
--- NOTE | 2019-01-01 10:00 | NUR ---
RN NOTES TREASURE HUMPHREYS DNP AT THE UNIT INSERTING A LINE ON THE LEFT GROIN PART AND DIALYSIS CATH ON THE RIGHT GROIN Addendum: 01/01/19 at 1604 by ANGELICA STONE RN 1140 MELLO HUMPHREYS WAS JUST DONE INSERTION THE HD CATH AND A LINE. PATIENT WITH COPIOUS SECRETION FROM THE MOUTH. PATIENT SUCTIONED, CLEANED AND MADE COMFORTABLE. DRE (CHARGE NURSE) AND ABIMAEL TRIPP ALSO AT BEDSIDE, THEY HAVE NOTICE THE COPIOUS DRAINAGE FROM THE INTERMITTENT SUCTION, FROM ETT, MOUTH AND NOSE
[2019-01-01 10:07] LABS: *SPE A/G RATIO 0.9 (0.7-1.7); *SPE ALBUMIN 2.3 g/dL (2.9-4.4); *SPE ALPHA-1-GLOBULIN 0.4 g/dL (0.0-0.4); *SPE ALPHA-2-GLOBULIN 0.8 g/dL (0.4-1.0); *SPE BETA GLOBULIN 0.7 g/dL (0.7-1.3); *SPE GLOBULIN, TOTAL 2.5 g/dL (2.2-3.9); *SPE M-SPIKE Not Observed g/dL (Not Observed); *SPEGAMMA GLOBULIN 0.6 g/dL (0.4-1.8)
--- NOTE | 2019-01-01 11:00 | NUR ---
RN NOTES BLOOD SUGAR CHECK AT THIS TIME READS LOW STILL. INFORMED MD AND OBTAINED ORDER TO GIVE D50 AT THIS TIME. ALSO OBTAINED ORDER TO DO STAT BLOOD GLUCOSE AND TO INCREASE D10 TO 75CC/HR. ORDERS NOTED AND CARRIED OUT
--- NOTE | 2019-01-01 11:30 | NUR ---
RN NOTES PAGED DR. POLLACK ON CHEST XRAY RESULT. NO NEW ORDERS OBTAINED
--- NOTE | 2019-01-01 12:00 | NUR ---
ABIMAEL NOTES BLOOD SUGAR RECHECK THROUGH FINGERSTICK SINCE LAB RESULTS STILL PENDING, BLOOD SUGAR STILL READS LOW. ANOTHER D50 ADMINISTERED. MADE AWARE. Addendum: 01/01/19 at 1310 by [address]GELICA STONE RN DR. HUMPHREYS WHO HAPPEN TO BE AT THE UNIT AT THIS TIME INFORMED. OBTAINED AN ORDER FOR STAT GLUCAGON 1MG IM. ORDER NOTED AND CARRIED OUT. INFORMED DR LYNN REGARDING THE OBTAINED ORDER WELL Addendum: 01/01/19 at 1607 by ANGELICA STONE RN CHRISTY PETTY RN ALSO AT BEDSIDE AT THIS TIME. THEY SHOWN TREASURE HUMPHREYS ON THE PURPLISH DISCOLORATION NOTED ON THE PUBIC AREA
[2019-01-01 12:06] LABS: PTH, INTACT 142 pg/mL (15-65)
[2019-01-01] MEDS ORDERED: GLUCAGON,HUMAN RECOMBINANT 1 MG/VIAL VIAL ONE (12:28)
[2019-01-01] MEDS ORDERED: VANCOMYCIN 500 MG in IV D5W 100 ML IV PRN (12:30)
[2019-01-01] MEDS ORDERED: GLUCAGON,HUMAN RECOMBINANT 1 MG/VIAL VIAL IM ONE (13:00)
--- NOTE | 2019-01-01 13:00 | NUR ---
RN NOTES SPOKE TO KATIE KENDALL ([employer] ON THE FACESHEET). UPDATED ON THE PATIENT'S CONDITION
--- NOTE | 2019-01-01 13:48 | NUR ---
RN NOTES WENT TO BEDSIDE TO CHECK ON PATIENT AND PATIENT WAS NOTED PULSELESS. DRE (CHARGE NURSE) ALSO CAME RUSHING TO THE ROOM WHO ORDERED TO CALL CODE. THUS SELENA BOWLING INITIATED
[2019-01-01] MEDS ORDERED: CASPOFUNGIN IV ONE (14:00)
[2019-01-01] MEDS ORDERED: NS 0.9% IV ONE (14:00)
--- NOTE | 2019-01-01 14:02 | NUR ---
RN NOTES SPOKE TO YULIYA TODD (LAKHWINDER) WHILE PATIENT ON CODE, HANDED PHONE TO DR. HUMPHREYS AFTERWARDS.
--- NOTE | 2019-01-01 14:06 | NUR ---
RN NOTES CODE STOPPED AT THIS TIME. DR. TREASURE HUMPHREYS PRONOUNCE PATIENT .
--- NOTE | 2019-01-01 14:06 | NUR ---
RT SELENA BOWLING WAS CALLED FOR PATIENT. CPR INITIATED IMMEDIATELY. SELENA BOWLING WAS RAN BY TREASURE HUMPHREYS. AFTER MULTIPLE EFFORTS TREASURE HUMPHREYS PRONOUNCED THE PATIENT .
[2019-01-01 14:10] LABS: ABG BASE EXCESS -0.7 mmol/L; ABG OXYGEN SATURATION 84.2 % (92.0-98.5); ABG PH 7.228 (7.350-7.450); COHb 1.1 % (0.5-1.5); MetHb 1.4 % (0.0-1.5); O2Hb 82.1 % (94.0-97.0); SITE, ABG A-Line; VENT MODE, BG NRB AT 100%
[2019-01-01] MEDS ORDERED: EPINEPHRINE (1:10,000) SYRINGE 1 MG/10 ML DISP.SYRIN IVP ONE (14:33)
[2019-01-01] MEDS ORDERED: CALCIUM CHLORIDE 1,000 MG/10 ML DISP.SYRIN IV ONE (14:33)
[2019-01-01] MEDS ORDERED: PANTOPRAZOLE 40 MG VIAL IV SCH (15:00)
[2019-01-01] MEDS ORDERED: MICAFUNGIN SODIUM 100 MG in IV NS 0.9% 100 ML IV SCH (15:00)
[2019-01-01 17:06] LABS: *ANA ANTI-CENTROMERE B AB <0.2 AI (0.0-0.9); *ANA ANTI-DNA(DS) AB, QN <1 IU/mL (0-9); *ANA ANTI-JO-1 <0.2 AI (0.0-0.9); *ANA ANTICHROMATIN ANTIBODY <0.2 AI (0.0-0.9); *ANA RNP ANTIBODIES <0.2 AI (0.0-0.9); *ANA SJOGREN'S ANTI-SS-A <0.2 AI (0.0-0.9); *ANA SJOGREN'S ANTI-SS-B <0.2 AI (0.0-0.9); *ANAANTI-SCLERODERMA-70 AB <0.2 AI (0.0-0.9); *ANASMITH AB <0.2 AI (0.0-0.9)
[2019-01-02] MEDS ORDERED: CASPOFUNGIN 50 MG in IV NS 0.9% 250 ML IV SCH (14:00)
== END 2019-01-01 17:46 | disposition expired | DRG 871 ==
LOC: ER 10:06 → MED 13:27 → ICU 12-31 12:03
PROVIDERS: ADMIT Nurse Practitioner Acute Care; ATTEND Internal Medicine
PROC: 0D9P3ZZ Drainage of Rectum, Percutaneous Approach (ICD-10-PCS; principal; 2018-12-31)
PROC: 5A1935Z Respiratory Ventilation, Less than 24 Consecutive Hours (ICD-10-PCS; 2018-12-31)
PROC: 0BH17EZ Insertion of Endotracheal Airway into Trachea, Via Natural or Artificial Opening (ICD-10-PCS; 2018-12-31)
PROC: 02HV33Z Insertion of Infusion Device into Superior Vena Cava, Percutaneous Approach (ICD-10-PCS; 2018-12-31)
PROC: 5A12012 Performance of Cardiac Output, Single, Manual (ICD-10-PCS; 2018-12-31)
PROC: 04HL33Z Insertion of Infusion Device into Left Femoral Artery, Percutaneous Approach (ICD-10-PCS; 2018-12-31)
PROC: 06HM33Z Insertion of Infusion Device into Right Femoral Vein, Percutaneous Approach (ICD-10-PCS; 2019-01-01)
PROC: B54BZZA Ultrasonography of Right Lower Extremity Veins, Guidance (ICD-10-PCS; 2019-01-01)
PROC: 5A2204Z Restoration of Cardiac Rhythm, Single (ICD-10-PCS; 2019-01-01)
PROC: 04HL33Z Insertion of Infusion Device into Left Femoral Artery, Percutaneous Approach (ICD-10-PCS; 2019-01-01)
PROC: 5A1D70Z Performance of Urinary Filtration, Intermittent, Less than 6 Hours Per Day (ICD-10-PCS; 2019-01-01)
DX: A41.9 Sepsis, unspecified organism (principal); N17.0 Acute kidney failure with tubular necrosis; N18.6 End stage renal disease; R65.21 Severe sepsis with septic shock; E43 Unspecified severe protein-calorie malnutrition; G92 Toxic encephalopathy; J18.9 Pneumonia, unspecified organism; J96.00 Acute respiratory failure, unspecified whether with hypoxia or hypercapnia; K72.00 Acute and subacute hepatic failure without coma; I12.0 Hypertensive chronic kidney disease with stage 5 chronic kidney disease or end stage renal disease; S36.69XA Other injury of rectum, initial encounter; D61.818 Other pancytopenia; E87.2 Acidosis; J98.11 Atelectasis; N13.30 Unspecified hydronephrosis; K83.09 Other cholangitis; E86.0 Dehydration; X58.XXXA Exposure to other specified factors, initial encounter; Y92.89 Other specified places as the place of occurrence of the external cause; I48.91 Unspecified atrial fibrillation; M41.9 Scoliosis, unspecified; F32.9 Major depressive disorder, single episode, unspecified; Z79.899 Other long term (current) drug therapy; K62.3 Rectal prolapse; K64.9 Unspecified hemorrhoids; K59.00 Constipation, unspecified; G89.29 Other chronic pain; E83.51 Hypocalcemia; E83.39 Other disorders of phosphorus metabolism; E78.5 Hyperlipidemia, unspecified; Z86.19 Personal history of other infectious and parasitic diseases; K52.89 Other specified noninfective gastroenteritis and colitis; I46.9 Cardiac arrest, cause unspecified; N30.90 Cystitis, unspecified without hematuria
CPT/HCPCS: 31720; 36415; 36600; 71045-TC; 71250-TC; 74018; 76705-TC; 76770-TC; 80048-TC; 80053-TC; 80061-TC; 80076-TC; 80202-TC; 81000-TC; 82140-TC; 82378; 82533; 82550-TC; 82570-TC; 82728-TC; 82803-TC; 82947-TC; 82962-TC; 83540-TC; 83605-TC; 83615-TC; 83690-TC; 83735-TC; 83970; 84100-TC; 84155; 84155-TC; 84165; 84300-TC; 84439-TC; 84443-TC; 85025-TC; 85396; 85652-TC; 86225; 86235; 86706; 86803; 87040-TC; 87070-TC; 87081-TC; 87086-TC; 87186-TC; 87340; 87449; 93307-TC; 94003-TC; 94760-TC; 97116-TC; 97530-TC; A4216; A6253; A6403; C1750; C1751; G0378; J0171; J0610; J0637; J1170; J1610; J1815; J2185; J2248; J2270; J2370; J2405; J2543; J3010; J3370; J3475; J3490; J7030; J7040; J7042; J7050; J7060; P9047